=== PATIENT | male | born 1950 | race Asian ===

== ENCOUNTER 2022-11-02 17:02 | Emergency (ER) | payer OTHER ==
[~2022-11-02] VITALS: Ht 172.7 cm; Wt 77.0 kg
[2022-11-02 17:45] VITALS: BP 119/80
== END 2022-11-02 18:58 | disposition home or self-care (01) ==
LOC: ER 17:02
DX: S00.01XA Abrasion of scalp, initial encounter (principal); I10 Essential (primary) hypertension; W18.39XA Other fall on same level, initial encounter; Y93.89 Activity, other specified; Y92.89 Other specified places as the place of occurrence of the external cause; Y99.8 Other external cause status
CPT/HCPCS: 99283